=== PATIENT | male | born 1945 | race Caucasian/White ===

== ENCOUNTER 2020-03-13 21:29 | Inpatient (IN) ==
[2020-03-14 00:30] LABS: Allen Test Positive; Pt O2 Delivery Device BIPAP
[2020-03-14 00:34] LABS: ABG Base Excess -2.5 MMOL/L (-2.5-2.5); ABG HCO3 22.3 MMOL/L (20-26); ABG Oxygen Saturation 99.1 % (95-100); ABG PCO2 40.6 MM HG (35-48); ABG PH 7.358 (7.35-7.45); ABG TCO2 20.3 MMOL/L (23-27)
[2020-03-14 00:36] LABS: Basophils # 0.1 10*3/uL (0.0-0.2); Basophils % 0.5 % (0.0-0.8); Eosinophils # 0.2 10*3/uL (0.0-0.87); Eosinophils % 1.4 % (0.00-10.9); Hematocrit 39.6 VOL% (42.0-52.0); Hemoglobin 12.4 GM/DL (14.0-18.0); Immature Granulocytes % 0.7 %; Immature Granulocytes Absolute 0.08 #; Lymphocytes # 2.2 10*3/uL (1.4-4.0); Lymphocytes % 19.3 % (21.2-54.2); Mean Corpuscular HGB Conc 31.3 GM/DL (32-36); Mean Corpuscular Volume 96.8 FL (87-102); Monocytes % 1.1 % (1.7-12.7); Platelet Count 214 T/CUMM (130-400); Red Blood Count 4.09 MC/CUMM (3.8-5.5); Red Cell Distribution Width 13.7 % (9.3-17.3); White Blood Count 11.3 T/CUMM (4-12)
[2020-03-14 00:48] LABS: INR 1.1; PT Patient Result 11.4 SECS (9.8-11.9)
[2020-03-14 00:51] LABS: Alanine Aminotransferase 35 U/L (16-61); Albumin 3.4 G/DL (3.4-5.0); Alkaline Phosphatase 50 U/L (45-117); Aspartate Amino Transferase 30 U/L (0-37); Blood Urea Nitrogen 36 MG/DL (7-18); Calcium 9.7 MG/DL (8.5-10.1); Estimated Glom Filtration Rate 29 ML/MIN; Glucose 166 MG/DL (74-106); Total Protein 7.6 G/DL (6.4-8.3); Troponin I 0.624 NG/ML (0.00-0.045)
[2020-03-14] MEDS ORDERED: PROMETHAZINE 25 MG/1 ML VIAL IM PRN (00:54)
[2020-03-14] MEDS ORDERED: ONDANSETRON 4 MG/2 ML VIAL IV PRN (00:54)
[2020-03-14] MEDS ORDERED: ALBUTEROL 2.5 MG/3 ML NEB RESP TX PRN (00:54)
[2020-03-14] MEDS ORDERED: GLUCAGON 1 MG VIAL IM PRN (01:04)
[2020-03-14] MEDS ORDERED: DEXTROSE 10% 250 ML BAG IV PRN (01:04)
[2020-03-14] MEDS: ENOXAPARIN 30 MG/0.3 ML SYRINGE SUBCUT SCH (01:43)
[2020-03-14] MEDS: SODIUM CHLORIDE 0.9% 1,000 ML IV SCH ×2 (01:43→13:00)
[2020-03-14] MEDS: CEFEPIME 1,000 MG in SODIUM CHLORIDE 0.9% 100 ML IV SCH ×4 (01:43→19:38)
[2020-03-14] MEDS: PANTOPRAZOLE 40 MG VIAL IV SCH (01:43)
[2020-03-14] MEDS: methylPREDNISolone SOD SUC 40 MG/1 ML VIAL IV SCH ×4 (01:44→19:37)
[2020-03-14] MEDS: IPRATROPIUM 500 MCG/2.5 ML NEB RESP TX SCH ×4 (01:54→19:39)
[2020-03-14] MEDS: hydrALAZINE 20 MG/1 ML VIAL IV PRN ×2 (04:00→16:20)
[2020-03-14 04:35] LABS: Basophils % 0.3 % (0.0-0.8); Eosinophils % 0.3 % (0.00-10.9); Hematocrit 33.8 VOL% (42.0-52.0); Hemoglobin 10.8 GM/DL (14.0-18.0); Immature Granulocytes % 0.8 %; Immature Granulocytes Absolute 0.07 #; Lymphocytes # 2.1 10*3/uL (1.4-4.0); Lymphocytes % 23.9 % (21.2-54.2); Mean Corpuscular Volume 94.9 FL (87-102); Mean Platelet Volume 10.2 FL (9.6-12.0); Neutrophils % 73.7 % (38.7-73.9); Platelet Count 184 T/CUMM (130-400); Red Blood Count 3.56 MC/CUMM (3.8-5.5); Red Cell Distribution Width 13.6 % (9.3-17.3); White Blood Count 8.7 T/CUMM (4-12)
[2020-03-14 04:52] LABS: Blood Urea Nitrogen 36 MG/DL (7-18); Estimated Glom Filtration Rate 39 ML/MIN; Glucose 149 MG/DL (74-106); Osmolality,Calculated 293.1 MOS/KG (273-304)
[2020-03-14 05:02] LABS: Troponin I 0.578 NG/ML (0.00-0.045)
[2020-03-14] MEDS ORDERED: ACETAMINOPHEN 325 MG TABLET PO PRN (07:12)
[2020-03-14] MEDS: INSULIN REGULAR 100 UNIT/ML SUBCUT SCH ×4 (07:40→22:24)
[2020-03-14] MEDS: carvediloL 12.5 MG TABLET PO SCH (21:56)
[2020-03-14] MEDS: ATORVASTATIN 20 MG TABLET PO SCH (21:56)
[2020-03-15] MEDS: IPRATROPIUM 500 MCG/2.5 ML NEB RESP TX SCH ×2 (00:10→06:55)
[2020-03-15] MEDS: CEFEPIME 1,000 MG in SODIUM CHLORIDE 0.9% 100 ML IV SCH ×2 (01:00→06:49)
[2020-03-15] MEDS: PANTOPRAZOLE 40 MG VIAL IV SCH (01:01)
[2020-03-15] MEDS: ENOXAPARIN 30 MG/0.3 ML SYRINGE SUBCUT SCH (01:58)
[2020-03-15] MEDS: methylPREDNISolone SOD SUC 40 MG/1 ML VIAL IM SCH ×2 (02:00→08:52)
[2020-03-15] MEDS: methylPREDNISolone SOD SUC 40 MG/1 ML VIAL IV SCH (02:01)
[2020-03-15 05:32] LABS: Basophils % 0.2 % (0.0-0.8); Eosinophils % 0.2 % (0.00-10.9); Hematocrit 34.9 VOL% (42.0-52.0); Immature Granulocytes % 0.9 %; Immature Granulocytes Absolute 0.09 #; Lymphocytes # 2.3 10*3/uL (1.4-4.0); Lymphocytes % 23.4 % (21.2-54.2); Mean Corpuscular HGB Conc 31.5 GM/DL (32-36); Mean Corpuscular Volume 95.9 FL (87-102); Mean Platelet Volume 10.1 FL (9.6-12.0); Neutrophils % 71.3 % (38.7-73.9); Platelet Count 196 T/CUMM (130-400); Red Blood Count 3.64 MC/CUMM (3.8-5.5); Red Cell Distribution Width 13.9 % (9.3-17.3); White Blood Count 9.7 T/CUMM (4-12)
[2020-03-15 05:56] LABS: Osmolality,Calculated 291.7 MOS/KG (273-304)
[2020-03-15] MEDS: INSULIN REGULAR 100 UNIT/ML SUBCUT SCH ×4 (08:51→22:04)
[2020-03-15] MEDS: CETIRIZINE 10 MG TABLET PO SCH (08:52)
[2020-03-15] MEDS: POLYETHYLENE GLYCOL POWDER 17 GM PACK PO SCH (08:52)
[2020-03-15] MEDS: carvediloL 12.5 MG TABLET PO SCH ×2 (08:52→21:54)
[2020-03-15] MEDS: ASPIRIN EC 81 MG TABLET PO SCH (08:52)
[2020-03-15] MEDS ORDERED: ALBUTEROL/IPRATROPIUM 3 ML NEB RESP TX PRN (09:58)
[2020-03-15] MEDS: CEFDINIR 300 MG CAPSULE PO SCH ×2 (12:46→21:54)
[2020-03-15] MEDS: methylPREDNISolone 4 MG TABLET PO SCH (12:47)
[2020-03-15] MEDS: ALBUTEROL/IPRATROPIUM 3 ML NEB RESP TX SCH ×2 (12:47→19:50)
[2020-03-15] MEDS: ATORVASTATIN 20 MG TABLET PO SCH (21:54)
[2020-03-15] MEDS: hydrALAZINE 20 MG/1 ML VIAL IV PRN (23:29)
[2020-03-16] MEDS: ALBUTEROL/IPRATROPIUM 3 ML NEB RESP TX SCH ×4 (00:50→20:30)
[2020-03-16] MEDS: ENOXAPARIN 30 MG/0.3 ML SYRINGE SUBCUT SCH (01:06)
[2020-03-16] MEDS: PANTOPRAZOLE 40 MG VIAL IV SCH (01:08)
[2020-03-16] MEDS: methylPREDNISolone 4 MG TABLET PO SCH ×2 (06:15→12:56)
[2020-03-16] MEDS: INSULIN REGULAR 100 UNIT/ML SUBCUT SCH ×4 (08:40→21:22)
[2020-03-16] MEDS: POLYETHYLENE GLYCOL POWDER 17 GM PACK PO SCH (08:44)
[2020-03-16] MEDS: CEFDINIR 300 MG CAPSULE PO SCH ×2 (08:45→21:22)
[2020-03-16] MEDS: ASPIRIN EC 81 MG TABLET PO SCH (08:45)
[2020-03-16] MEDS: carvediloL 12.5 MG TABLET PO SCH ×2 (08:45→21:22)
[2020-03-16] MEDS: CETIRIZINE 10 MG TABLET PO SCH (08:45)
[2020-03-16] MEDS: ATORVASTATIN 20 MG TABLET PO SCH (21:22)
[2020-03-17] MEDS: ENOXAPARIN 30 MG/0.3 ML SYRINGE SUBCUT SCH (00:41)
[2020-03-17] MEDS: PANTOPRAZOLE 40 MG VIAL IV SCH (00:41)
[2020-03-17] MEDS: ALBUTEROL/IPRATROPIUM 3 ML NEB RESP TX SCH ×4 (01:10→19:24)
[2020-03-17] MEDS: methylPREDNISolone 4 MG TABLET PO SCH ×2 (06:28→13:30)
[2020-03-17 07:37] LABS: Basophils % 0.4 % (0.0-0.8); Eosinophils # 0.1 10*3/uL (0.0-0.87); Eosinophils % 0.9 % (0.00-10.9); Hematocrit 37.8 VOL% (42.0-52.0); Hemoglobin 11.6 GM/DL (14.0-18.0); Immature Granulocytes Absolute 0.08 #; Lymphocytes # 2.7 10*3/uL (1.4-4.0); Mean Corpuscular HGB Conc 30.7 GM/DL (32-36); Mean Corpuscular Volume 97.7 FL (87-102); Mean Platelet Volume 11.3 FL (9.6-12.0); Monocytes % 7.9 % (1.7-12.7); Neutrophils % 56.8 % (38.7-73.9); Platelet Count 144 T/CUMM (130-400); Red Blood Count 3.87 MC/CUMM (3.8-5.5); White Blood Count 8.2 T/CUMM (4-12)
[2020-03-17 08:56] LABS: Calcium 8.9 MG/DL (8.5-10.1); Osmolality,Calculated 298.3 MOS/KG (273-304)
[2020-03-17] MEDS: INSULIN REGULAR 100 UNIT/ML SUBCUT SCH ×4 (09:45→20:40)
[2020-03-17] MEDS: CEFDINIR 300 MG CAPSULE PO SCH ×2 (09:46→20:39)
[2020-03-17] MEDS: POLYETHYLENE GLYCOL POWDER 17 GM PACK PO SCH (09:46)
[2020-03-17] MEDS: carvediloL 12.5 MG TABLET PO SCH ×2 (09:46→20:40)
[2020-03-17] MEDS: ASPIRIN EC 81 MG TABLET PO SCH (09:46)
[2020-03-17] MEDS: CETIRIZINE 10 MG TABLET PO SCH (09:46)
[2020-03-17] MEDS: ATORVASTATIN 20 MG TABLET PO SCH (20:39)
[2020-03-18] MEDS: ALBUTEROL/IPRATROPIUM 3 ML NEB RESP TX SCH ×4 (00:45→19:22)
[2020-03-18] MEDS: PANTOPRAZOLE 40 MG VIAL IV SCH (00:53)
[2020-03-18] MEDS: ENOXAPARIN 30 MG/0.3 ML SYRINGE SUBCUT SCH (00:53)
[2020-03-18] MEDS: methylPREDNISolone 4 MG TABLET PO SCH ×2 (06:14→13:35)
[2020-03-18] MEDS: INSULIN REGULAR 100 UNIT/ML SUBCUT SCH ×4 (08:52→20:39)
[2020-03-18] MEDS: ASPIRIN EC 81 MG TABLET PO SCH (09:19)
[2020-03-18] MEDS: POLYETHYLENE GLYCOL POWDER 17 GM PACK PO SCH (09:19)
[2020-03-18] MEDS: CEFDINIR 300 MG CAPSULE PO SCH ×2 (09:19→20:38)
[2020-03-18] MEDS: CETIRIZINE 10 MG TABLET PO SCH (09:19)
[2020-03-18] MEDS: carvediloL 12.5 MG TABLET PO SCH ×2 (09:19→20:38)
[2020-03-18] MEDS: ATORVASTATIN 20 MG TABLET PO SCH (20:38)
[2020-03-19] MEDS: ALBUTEROL/IPRATROPIUM 3 ML NEB RESP TX SCH ×2 (01:40→07:15)
[2020-03-19] MEDS: methylPREDNISolone 4 MG TABLET PO SCH (06:54)
[2020-03-19 07:38] VITALS: BP 175/79
[2020-03-19] MEDS: INSULIN REGULAR 100 UNIT/ML SUBCUT SCH (08:08)
[2020-03-19] MEDS ORDERED: ENOXAPARIN 30 MG/0.3 ML SYRINGE SUBCUT SCH (09:00)
[2020-03-19] MEDS ORDERED: PANTOPRAZOLE 40 MG VIAL IV SCH (09:00)
[2020-03-19] MEDS: ASPIRIN EC 81 MG TABLET PO SCH (09:12)
[2020-03-19] MEDS: POLYETHYLENE GLYCOL POWDER 17 GM PACK PO SCH (09:12)
[2020-03-19] MEDS: carvediloL 12.5 MG TABLET PO SCH (09:12)
[2020-03-19] MEDS: CETIRIZINE 10 MG TABLET PO SCH (09:12)
[2020-03-19] MEDS: CEFDINIR 300 MG CAPSULE PO SCH (09:38)
== END 2020-03-19 11:15 | disposition home or self-care (01) | DRG 191 ==
LOC: N.ICU 23:08 → SUATTDRO 23:08 → N.TELEN 03-14 17:54
PROVIDERS: ADMIT Internal Medicine; ATTEND Internal Medicine